=== PATIENT | female | born 1975 | race Caucasian/White ===

== ENCOUNTER → 2024-03-24 | Day surgery (SDC) | payer MEDICARE ==
[~2024-03-24] MED LIST: AMITRIPTYLINE H25 MG PO; ATIVAN0.5 MG PO; BUPIVACAINE HCL 0.5% INJ 30 ML VIAL INJ ONE; CYMBALTA30 MG PO; DEXAMETHASONE SOD PHOS INJ 4 MG/ML SDV ONE; FENTANYL CITRATE/PF 100MCG/2 ML INJ ONE; GLYCOPYRROLATE INJ 0.2 MG/ML VIAL ONE; HYDROMORPHONE 1MG/1ML INJ ONE; HYDROMORPHONE HC2 MG PO; KETAMINE 50MG/5ML SYR ONE; LACTATED RINGER'S 1,000 ML ONE; LIDOCAINE HCL 2% LOCAL INJ 5 ML SDV VIAL INJ ONE; LIPITOR10 MG PO; MIDAZOLAM HCL 2 MG/2 ML VIAL ONE; NEOSTIGMINE 1 MG/ML 10ML VIAL ONE; ONDANSETRON HCL INJ 2MG/ML 2ML 2 MG/ML VIAL ONE; PROPOFOL IV EMULSION 10 MG/ML 20 ML VIAL ONE; SEVOFLURANE INHAL SOLN 250 ML PEN BTL ONE
[2024-03-24 14:10] VITALS: BP 129/87; PULSE 92; RESP 18; O2SAT 99
== END | disposition home or self-care (01) ==
LOC: OR 09:15
PROVIDERS: ATTEND Podiatrist Foot & Ankle Surgery
DX: M66.371 Spontaneous rupture of flexor tendons, right ankle and foot (principal); M89.9 Disorder of bone, unspecified; Z79.899 Other long term (current) drug therapy; E78.5 Hyperlipidemia, unspecified; F41.9 Anxiety disorder, unspecified; F32.A Depression, unspecified; F17.200 Nicotine dependence, unspecified, uncomplicated; Z01.818 Encounter for other preprocedural examination; Z01.810 Encounter for preprocedural cardiovascular examination; Z85.820 Personal history of malignant melanoma of skin
CPT/HCPCS: 28022; 28200; 71046; 76000; 81025; 93005; C1713; C1762; J1100; J1170; J2001; J2250; J2405; J2704; J3010; J7121; J2710